=== PATIENT | female | born 1970 | race Two or more races ===

== ENCOUNTER 2020-04-25 13:35 | Emergency (ER) | payer SELFPAY ==
[~2020-04-25] VITALS: Ht 162.6 cm; Wt 90.9 kg
[2020-04-25 14:35] LABS: BASO # 0.1 x10^3/uL (0.0-0.2); BASO % 1 % (0-3); EOS # 0.9 x10^3/uL (0.0-0.7); EOS % 10 % (0-3); HEMATOCRIT 43.3 % (36.0-47.0); HEMOGLOBIN 14.6 g/dL (12.0-15.5); LYMPH # 1.8 x10^3/uL (1.0-4.8); LYMPH % 20 % (24-48); MEAN CORPUSCULAR HEMOGLOBIN 31 pg (25-35); MEAN CORPUSCULAR HGB CONC 34 g/dL (31-37); MEAN CORPUSCULAR VOLUME 92 fL (79-100); MONO # 0.6 x10^3/uL (0.0-1.1); MONO % 7 % (0-9); NEUT # 5.5 x10^3/uL (1.8-7.7); NEUT % 62 % (31-73); PLATELET COUNT 241 x10^3/uL (140-400); RED BLOOD COUNT 4.69 x10^6/uL (3.50-5.40); RED CELL DISTRIBUTION WIDTH 12.6 % (11.5-14.5); WHITE BLOOD COUNT 8.9 x10^3/uL (4.0-11.0)
[2020-04-25 14:37] LABS: BILIRUBIN,URINE NEGATIVE (NEG); CLARITY,URINE CLEAR; COLOR,URINE AMBER; NITRITE,URINE NEGATIVE (NEG); PH,URINE 5.5 (<5.0-8.0); PROTEIN,URINE NEGATIVE (NEG-TRACE)
[2020-04-25 14:48] LABS: BACTERIA,URINE 0 /HPF (0-FEW); HYALINE CASTS, URINE OCCASIONAL /HPF
[2020-04-25 14:49] LABS: AMORPHOUS SEDIMENT,UR PRESENT /HPF; RBC,URINE 0 /HPF (0-2); WBC,URINE 0 /HPF (0-4)
[2020-04-25 14:50] LABS: CALCIUM 9.2 mg/dL (8.5-10.1); CREATININE 0.8 mg/dL (0.6-1.0); GFR 76.6; POTASSIUM 3.6 mmol/L (3.5-5.1)
[2020-04-25 14:55] LABS: ALBUMIN 3.6 g/dL (3.4-5.0); ALBUMIN/GLOBULIN RATIO 0.9 (1.0-1.7); MAGNESIUM 1.9 mg/dL (1.8-2.4); TOTAL BILIRUBIN 0.9 mg/dL (0.2-1.0); TOTAL PROTEIN 7.4 g/dL (6.4-8.2)
[2020-04-25] MEDS ORDERED: IV NORMAL SALINE 1000ML BAG 1,000 ML IV ONE (15:00)
[2020-04-25] MEDS ORDERED: ONDANSETRON PF 4 MG/2 ML VIAL. IVP ONE (15:00)
[2020-04-25] MEDS ORDERED: FAMOTIDINE 20 MG/2 ML VIAL IV ONE (15:00)
[2020-04-25] MEDS ORDERED: fentaNYL PF VIAL 100 MCG/2 ML VIAL IV ONE (15:00)
--- NOTE | 2020-04-25 15:07 | RAD ---
AP chest. HISTORY: Chest pain AP view was taken of the chest. Lungs are free of infiltrates. The patient's taken a poor inspiration. There is no effusion. IMPRESSION: 1. No acute infiltrates. Electronically signed by: Dimitris Malcolm MD (04/25/2020 3:04 PM) [facility]
--- NOTE | 2020-04-25 15:59 | RAD ---
PROCEDURE: ACUTE ABDOMEN SERIES STUDY DATE: 04/25/2020 CLINICAL INDICATION / HISTORY: Reason: ruq abd pain, epigastric pain, r/o juan / Spl. Instructions: / History: . TECHNIQUE: Upright PA chest, supine and upright films of the abdomen were obtained. COMPARISON: Chest x-ray earlier the same day FINDINGS: AP view the chest reveals the lungs to be clear. Cardiac and mediastinal silhouette are unremarkable. No free air is identified below the diaphragms. Supine and decubitus views of the abdomen reveal no dilated loops of bowel or air-fluid levels. No organomegaly is present. No destructive osseous lesions. IMPRESSION: No radiographic evidence for bowel obstruction. Electronically signed by: Kal Packer MD (04/25/2020 3:56 PM) [id number]
--- NOTE | 2020-04-25 16:52 | RAD ---
Ultrasound of the right upper quadrant of the abdomen 04/25/2020 CLINICAL HISTORY: Right upper quadrant abdominal pain. TECHNIQUE: A real-time ultrasound examination of the right upper quadrant abdomen was performed. Multiple images were obtained. FINDINGS: Images from the study are limited due to the patient's large body habitus. The gallbladder is well-distended. No gallstones are visualized. The gallbladder wall thickness is within normal limits. No pericholecystic fluid is seen. The liver is normal in size measuring 15.5 cm in length. Increased echogenicity of the liver parenchyma is seen consistent with fatty infiltration. The common bile duct is not definitely visualized. No obvious intra or extrahepatic biliary ductal dilatation is seen. The pancreas is not visualized due to overlying bowel gas and the patient's body habitus. The right kidney is within normal limits. No free fluid is seen. IMPRESSION: Fatty infiltration of the liver. Otherwise negative study. Electronically signed by: Bob Henry MD (04/25/2020 4:49 PM) [id number]
--- NOTE | 2020-04-25 17:04 | ED.ADGEN ---
Past Medical History Past Medical History: No Pertinent History Past Surgical History: No Surgical History Additional Past Surgical Histo: POOR HISTORIAN Smoking Status: Never Smoker Alcohol Use: None General Adult EDM: Chief Complaint: ABDOMINAL PAIN HPI: HPI: Patient is a 49 year old female, accompanied by her son, who presents to the emergency room with complaints of epigastric pain with nausea, and vomiting that began earlier today. Patient had a similar episode last weekend. She reports that she has vomited 4 times today but denies any blood in her vomit. Patient denies any lower abdominal pain, chest pain, palpitations, shortness of breath, cough, body aches, fatigue, or diarrhea. She reports that she takes Protonix at bedtime for GERD but states she has not missed any recent doses. She currently rates her pain 8 out of 10 on the pain scale, she denies any alleviating or exacerbating factors. Patient states that the pain does not increase when she lies down or after she eats food. Patient states she does have a history of gallstones. The patient's son translated for the patient as she spoke only limited Maltese. Review of Systems: Review of Systems: Complete ROS is negative unless otherwise noted in HPI. Family History: Family History: Current Medications: Current Medications Medications (Trade) Dose Ordered Sig/Mainor Start Time Stop Time Status Last Admin Dose Admin Famotidine (Pepcid Vial) 20 mg 1X ONCE 04/25/20 15:00 04/25/20 15:01 DC 04/25/20 15:36 20 MG Fentanyl Citrate (Fentanyl 2ml Vial) 50 mcg 1X ONCE 04/25/20 15:00 04/25/20 15:01 DC 04/25/20 15:36 50 MCG Ondansetron HCl (Zofran) 4 mg 1X ONCE 04/25/20 15:00 04/25/20 15:01 DC 04/25/20 15:36 4 MG Sodium Chloride 1,000 ml @ 1,000 mls/hr 1X ONCE 04/25/20 15:00 04/25/20 15:59 DC 04/25/20 15:35 1,000 MLS/HR Allergies: Allergies: Allergies Coded Allergies Type Severity Reaction Last Updated Verified No Known Drug Allergies 04/25/20 No Physical Exam: PE: See Above Constitutional: Well developed, well nourished, no acute distress, non-toxic appearance. [] HENT: Normocephalic, atraumatic, bilateral external ears normal, nose normal. [] Eyes: PERRLA, EOMI, conjunctiva normal, no discharge. [] Neck: Normal range of motion, no stridor. [] Cardiovascular:Heart rate regular rhythm Lungs & Thorax: Respirations even and unlabored, no retractions, no respiratory distress Abdomen: Bowel sounds normal, soft, no masses, no pulsatile masses, epigastric and right upper quadrant tenderness to palpation, no rebound tenderness, no guarding, Skin: Warm, dry, no erythema, no rash. [] Extremities: No cyanosis, ROM intact, no edema. [] Neurologic: Alert and oriented X 3, normal motor function, normal sensory function, no focal deficits noted. [] Psychologic: Affect normal, judgement normal, mood normal. [] Current Patient Data: Labs: Laboratory Tests Test 04/25/20 14:27 04/25/20 14:30 POC Urine HCG, Qualitative Hcg negative (Negative) White Blood Count 8.9 x10^3/uL (4.0-11.0) Red Blood Count 4.69 x10^6/uL (3.50-5.40) Hemoglobin 14.6 g/dL (12.0-15.5) Hematocrit 43.3 % (36.0-47.0) Mean Corpuscular Volume 92 fL (79-100) Mean Corpuscular Hemoglobin 31 pg (25-35) Mean Corpuscular Hemoglobin Concent 34 g/dL (31-37) Red Cell Distribution Width 12.6 % (11.5-14.5) Platelet Count 241 x10^3/uL (140-400) Neutrophils (%) (Auto) 62 % (31-73) Lymphocytes (%) (Auto) 20 % (24-48) L Monocytes (%) (Auto) 7 % (0-9) Eosinophils (%) (Auto) 10 % (0-3) H Basophils (%) (Auto) 1 % (0-3) Neutrophils # (Auto) 5.5 x10^3/uL (1.8-7.7) Lymphocytes # (Auto) 1.8 x10^3/uL (1.0-4.8) Monocytes # (Auto) 0.6 x10^3/uL (0.0-1.1) Eosinophils # (Auto) 0.9 x10^3/uL (0.0-0.7) H Basophils # (Auto) 0.1 x10^3/uL (0.0-0.2) Urine Collection Type Unknown Urine Color Pooja Urine Clarity Clear Urine pH 5.5 (<5.0-8.0) Urine Specific [place] >=1.030 (1.000-1.030) Urine Protein Negative mg/dL (NEG-TRACE) Urine Glucose (UA) Negative mg/dL (NEG) Urine Ketones (Stick) Negative mg/dL (NEG) Urine Blood Negative (NEG) Urine Nitrite Negative (NEG) Urine Bilirubin Negative (NEG) Urine Urobilinogen Dipstick 1.0 mg/dL (0.2 mg/dL) Urine Leukocyte Esterase Negative (NEG) Urine RBC 0 /HPF (0-2) Urine WBC 0 /HPF (0-4) Urine Squamous Epithelial Cells Few /LPF Urine Amorphous Sediment Present /HPF Urine Bacteria 0 /HPF (0-FEW) Urine Hyaline Casts Occasional /HPF Urine Mucus Marked /LPF Sodium Level 141 mmol/L (136-145) Potassium Level 3.6 mmol/L (3.5-5.1) Chloride Level 106 mmol/L (98-107) Carbon Dioxide Level 24 mmol/L (21-32) Anion Gap 11 (6-14) Blood Urea Nitrogen 15 mg/dL (7-20) Creatinine 0.8 mg/dL (0.6-1.0) Estimated GFR (Cockcroft-Gault) 76.6 BUN/Creatinine Ratio 19 (6-20) Glucose Level 103 mg/dL (70-99) H Calcium Level 9.2 mg/dL (8.5-10.1) Magnesium Level 1.9 mg/dL (1.8-2.4) Total Bilirubin 0.9 mg/dL (0.2-1.0) Aspartate Amino Transferase (AST) 27 U/L (15-37) Alanine Aminotransferase (ALT) 55 U/L (14-59) Alkaline Phosphatase 94 U/L (46-116) Creatine Kinase 112 U/L (26-192) Creatine Kinase MB (Mass) 1.0 ng/mL (0.0-3.6) Creatine Kinase MB Relative Index 0.9 % (0-4) Troponin I Quantitative < 0.017 ng/mL (0.000-0.055) Total Protein 7.4 g/dL (6.4-8.2) Albumin 3.6 g/dL (3.4-5.0) Albumin/Globulin Ratio 0.9 (1.0-1.7) L Lipase 109 U/L (73-393) Laboratory Tests 04/25/20 14:30 Laboratory Tests 04/25/20 14:30 Vital Signs: Vital Signs Date Time Temp Pulse Resp B/P (MAP) Pulse Ox O2 Delivery O2 Flow Rate FiO2 04/25/20 17:07 62 18 129/70 (89) 100 Room Air 04/25/20 13:45 97.7 97.7 EKG: EK-sinus rhythm, rate 66, no STEMI, read by Dr. Monsivais [] Heart Score: HEART Score for Chest Pain: HEART Score for Chest Pain Response (Comments) Value History Slighlty/Non-Suspicious 0 ECG Normal 0 Age < 45 0 Risk Factors 1 or 2 Risk Factors 1 Troponin < Normal Limit 0 Total 1 Risk Factors: Risk Factors: DM, Current or recent (<one month) smoker, HTN, HLP, family history of CAD, obesity. Risk Scores: Score 0 - 3: 2.5% MACE over next 6 weeks - Discharge Home Score 4 - 6: 20.3% MACE over next 6 weeks - Admit for Clinical Observation Score 7 - 10: 72.7% MACE over next 6 weeks - Early Invasive Strategies Radiology/Procedures: Radiology/Procedures: PROCEDURE: ABDOMEN LTD Ultrasound of the right upper quadrant of the abdomen 04/25/2020 CLINICAL HISTORY: Right upper quadrant abdominal pain. TECHNIQUE: A real-time ultrasound examination of the right upper quadrant abdomen was performed. Multiple images were obtained. FINDINGS: Images from the study are limited due to the patient's large body habitus. The gallbladder is well-distended. No gallstones are visualized. The gallbladder wall thickness is within normal limits. No pericholecystic fluid is seen. The liver is normal in size measuring 15.5 cm in length. Increased echogenicity of the liver parenchyma is seen consistent with fatty infiltration. The common bile duct is not definitely visualized. No obvious intra or extrahepatic biliary ductal dilatation is seen. The pancreas is not visualized due to overlying bowel gas and the patient's body habitus. The right kidney is within normal limits. No free fluid is seen. IMPRESSION: Fatty infiltration of the liver. Otherwise negative study. PROCEDURE: CHEST AP ONLY AP chest. HISTORY: Chest pain AP view was taken of the chest. Lungs are free of infiltrates. The patient's taken a poor inspiration. There is no effusion. IMPRESSION: 1. No acute infiltrates. [] Course & Med Decision Making: Course & Med Decision Making Pertinent Labs and Imaging studies reviewed. (See chart for details) Patient is a 49-year-old female who presented to the emergency room with com plaints of epigastric pain, nausea, and vomiting that began today. EKG revealed no acute findings. Heart score was only 1 there is low suspicion for ACS. CBC was unremarkable, CMP was also unremarkable, cardiac enzymes including troponin and CK index were negative. The patient's urine was unremarkable. Patient was given a liter of normal saline, 4 mg of Zofran, 20 mg of Pepcid, and 50 mcg of fentanyl IV she reported feeling better after these medications. Patient was provided with discharge instructions in French pertaining to a diet for GERD and she was encouraged to continue taking her Protonix. I recommended follow-up with her primary care doctor, return to the ER if symptoms worsen or fever develops. The patient verbalized an understanding of home care, medications, follow-up, an d return to ED instructions and was in agreement with the plan of care. Dru Disclaimer: Dru Disclaimer: This electronic medical record was generated, in whole or in part, using a voice recognition dictation system. Departure Departure Impression: Primary Impression: Epigastric pain Additional Impression: GERD (gastroesophageal reflux disease) Disposition: 01 [place] HOME SELF CARE/HOMELESS Condition: STABLE Referrals: NO PCP (PCP) Patient Instructions: Diet for Gastroesophageal Reflux Disease, Adult, [id number], Gastroesophageal Reflux Disease, Adult Additional Instructions: Continue taking your home medications as reported. Follow the diet instructions provided. Return to the ER if symptoms worsen or fever develops. [facility] [address] [place] [address] [facility] [address] [place] [address] [place] [address] [facility] [address] [address] [facility] [address] [place] [address] [address] [place] [address] [address] [place] [address] [place] [address] [facility] [address] [place] [address] [facility] [address] [place] [address] [facility] [address] [place] [address] Problem Qualifiers Additional Impression: GERD (gastroesophageal reflux disease) Esophagitis presence: esophagitis presence not specified Qualified Codes: K21.9 - Gastro-esophageal reflux disease without esophagitis YAJAIRA NEWSOME APRN Apr 25, 2020 17:04
[2020-04-25 17:07] VITALS: BP 129/70
== END 2020-04-25 17:16 | disposition home or self-care (01) ==
LOC: ER 13:35
DX: R10.13 Epigastric pain (principal); K21.9 Gastro-esophageal reflux disease without esophagitis; R11.2 Nausea with vomiting, unspecified; R10.11 Right upper quadrant pain
CPT/HCPCS: 36415; 71045; 74022; 76705; 80053; 81001; 81025; 82553; 83690; 83735; 84484; 85025; 96361; 96374; 96375; 99285; J2405; J3010; J3490; J7030